=== PATIENT | male | born 1995 | race Caucasian/White ===

== ENCOUNTER 2017-08-23 14:30 | Emergency (ER) | payer OTHER ==
[2017-08-23] MEDS ORDERED: Lidocaine 1% 20 ML MDV INJECT ONE (15:23)
[2017-08-23] MEDS ORDERED: Bacitracin Oint 1 GM U/D Packet TOP ONE (15:23)
[2017-08-23] MEDS ORDERED: Diphtheria,Pertussis(Acell),Tetanus Vaccine 0.5 ML Syringe IM ONE (15:23)
--- NOTE | 2017-08-23 15:54 | EDM.PDOC ---
ED HPI GENERAL MEDICAL PROBLEM - General Chief Complaint: Laceration Stated Complaint: CUT TO RIGHT INDEX FINGER Time Seen by Provider: 08/23/17 15:13 Source of Information: Reports: Patient History Limitations: Reports: No Limitations - History of Present Illness INITIAL COMMENTS - FREE TEXT/NARRATIVE: HISTORY AND PHYSICAL: History of present illness: Patient is a 21-year-old male who presents to the emergency room with complaints of a laceration to his right index finger and a partial avulsion to his right thumb to cutting it with a knife approximately 1 hour prior to arrival. There is a small skin avulsion noted to the distal tip of the lateral right thumb, no bleeding noted. The right index finger has a laceration across the PIP joint, measuring approximately 2.5 cm. This has mild bleeding that is controlled with pressure. He is unsure of his last tetanus shot, believes it was in 2009. Denies any numbness or tingling to the extremity. Review of systems: As per history of present illness and below otherwise all systems reviewed and negative. Past medical history: As per history of present illness and as reviewed below otherwise noncontributory. Surgical history: As per history of present illness and as reviewed below otherwise noncontributory. Social history: No reported history of drug or alcohol abuse. Family history: As per history of present illness and as reviewed below otherwise noncontributory. Physical exam: Gen.: Well-developed and well-nourished 21-year-old male. Appears nontoxic. Alert and oriented. HEENT: Atraumatic, normocephalic, pupils reactive, negative for conjunctival pallor or scleral icterus, mucous membranes moist, throat clear, neck supple, nontender, trachea midline. Lungs: Clear to auscultation, breath sounds equal bilaterally, chest nontender. Heart: S1S2, regular, negative for clicks, rubs, or JVD. Abdomen: Soft, nondistended, nontender. Negative for masses or hepatosplenomegaly. Negative for costovertebral tenderness. Pelvis: Stable nontender. Genitourinary: Deferred. Rectal: Deferred. Extremities: Moves all extremities per self, good plantar flexion and extension of the first and second digit of the right hand. Capillary refill less than 3 seconds. Radial pulse, Neurovascular unremarkable. Skin:There is a small skin avulsion noted to the distal tip of the lateral right thumb, no bleeding noted. The right index finger has a laceration across the PIP joint, measuring approximately 2.5 cm. appears to have no tendon involvement. No foreign bodies noted in the laceration. This has mild bleeding that is controlled with pressure. Neuro: Awake, alert, oriented. Cranial nerves II through XII unremarkable. Cerebellum unremarkable. Motor and sensory unremarkable throughout. Exam nonfocal. Diagnostics: [] Therapeutics: Soaked in chlorhexidine and normal saline prior to provider evaluation 1% lidocaine-3 mL's was used for anesthetizing the laceration. Was washed and cleansed with chlorhexidine 4-0 nylon used, #6 interrupted sutures and tolerated well. Bacitracin nonstick dressing Patient tolerated sutures well. We discussed the signs and symptoms of infection. We'll place the patient on Keflex as he has 2 lacerations one being avulsed. Patient voices understanding and is agreeable to plan of care. Blood stitches removed in 7-10 days. Impression: Laceration Skin avulsion Plan: 1. Please keep the wound clean and dry. For your thumb please keep Neosporin or bacitracin on for 1-2 days, after that he may just apply a Band-Aid. Monitor for signs of infection as we discussed. Take your antibiotics as prescribed. 2. May use Tylenol and/or ibuprofen for pain management. 3. Stitches out in 7-10 days. 4. Follow-up with your primary care provider in the next 1-2 days. Return to the ED as needed and as discussed. Definitive disposition and diagnosis as appropriate pending reevaluation and review of above. Right index finger Pain Score (Numeric/FACES): 2 - Related Data Allergies Allergy/AdvReac Type Severity Reaction Status Date / Time No Known Allergies Allergy Verified 08/23/17 14:48 Home Meds: Home Meds Venlafaxine [Effexor] 25 mg PO DAILY 08/23/17 [History] Past Medical History Psychiatric History: Reports: Depression - Infectious Disease History Infectious Disease History: Reports: Chicken Pox Social & Family History - Family History Family Medical History: Noncontributory - Tobacco Use Smoking Status *Q: Never Smoker Second Hand Smoke Exposure: No - Caffeine Use Caffeine Use: Reports: Coffee, Energy Drinks, Soda, Tea - Recreational Drug Use Recreational Drug Use: No ED ROS GENERAL - Review of Systems Review Of Systems: ROS reveals no pertinent complaints other than HPI. ED EXAM, SKIN/RASH Exam: See Below (See dictation) ED SKIN PROCEDURES - Laceration/Wound Repair Right Middle Medial Finger Lac/Wound length In cm: 2.5 Appearance: Linear Distal NVT: Neuro & Vascular Intact, No Tendon Injury Anesthetic Type: Local Local Anesthesia - Lidocaine (Xylocaine): 1% Plain Local Anesthetic Volume: 3cc Skin Prep: Chlorhexidine (Hibiciens), Saline, Sterile Drape Exploration/Debridement/Repair: Wound Explored, In a Bloodless Field, Explored to Base, No Foreign Material Found Closed with: Sutures Suture Size: 4-0 # of Sutures: 6 Suture Type: Nylon Course - Vital Signs Last Recorded V/S: Last Vital Signs Temp 36.6 C 08/23/17 14:51 Pulse 65 08/23/17 14:51 Resp 16 08/23/17 14:51 BP 103/59 L 08/23/17 14:51 Pulse Ox 100 08/23/17 14:51 - Orders/Labs/Meds Orders: Active Orders 24 hr Category Date Time Status Communication Order [RC] STAT Care 08/23/17 15:57 Ordered Vaccines to be Administered [RC] PER UNIT ROUTINE Care 08/23/17 15:23 Active Meds: Medications Discontinued Medications Generic Name Dose Route Start Last Admin Trade Name Fred PRN Reason Stop Dose Admin Bacitracin 1 dose 08/23/17 15:23 08/23/17 15:36 Bacitracin Oint 1 Gm TOP 08/23/17 15:24 1 dose ONETIME ONE Administration Diphtheria/Tetanus/Acell Pertussis 0.5 ml 08/23/17 15:23 08/23/17 15:37 Adacel IM 08/23/17 15:24 0.5 ml .ONCE ONE Administration Lidocaine HCl 20 ml 08/23/17 15:23 08/23/17 15:46 Xylocaine 1% INJECT 08/23/17 15:24 20 ml ONETIME ONE Administration Departure - Departure Time of Disposition: 15:59 Disposition: Home, Self-Care 01 Clinical Impression: Laceration - Discharge Information Instructions: Laceration Care, Adult, [id number] Referrals: Urmila Villagran DO [Primary Care Provider] - Forms: ED Department Discharge Additional Instructions: My general discharge The following information is given to patients seen in the emergency department who are being discharged to home. This information is to outline your options for follow-up care. We provide all patients seen in our emergency department with a follow-up referral. The need for follow-up, as well as the timing and circumstances, are variable depending upon the specifics of your emergency department visit. If you don't have a primary care physician on staff, we will provide you with a referral. We always advise you to contact your personal physician following an emergency department visit to inform them of the circumstance of the visit and for follow-up with them and/or the need for any referrals to a consulting specialist. The emergency department will also refer you to a specialist when appropriate. This referral assures that you have the opportunity for follow-up care with a specialist. All of these measure are taken in an effort to provide you with optimal care, which includes your follow-up. Under all circumstances we always encourage you to contact your private physician who remains a resource for coordinating your care. When calling for follow-up care, please make the office aware that this follow-up is from your recent emergency room visit. If for any reason you are refused follow-up, please contact the [facility] Emergency Department at and asked to speak to the emergency department charge nurse. [facility] [address] [place] [id number] 1. Please keep the wound clean and dry. For your thumb please keep Neosporin or bacitracin on for 1-2 days, after that he may just apply a Band-Aid. Monitor for signs of infection as we discussed. Take your antibiotics as prescribed. 2. May use Tylenol and/or ibuprofen for pain management. 3. Stitches out in 7-10 days. 4. Follow-up with your primary care provider in the next 1-2 days. Return to the ED as needed and as discussed. - My Orders Last 24 Hours: My Active Orders 08/23/17 15:23 Vaccines to be Administered [RC] PER UNIT ROUTINE 08/23/17 15:57 Communication Order [RC] STAT - Assessment/Plan Last 24 Hours: My Active Orders 08/23/17 15:23 Vaccines to be Administered [RC] PER UNIT ROUTINE 08/23/17 15:57 Communication Order [RC] STAT
== END 2017-08-23 16:21 | disposition home or self-care (01) ==
LOC: MW.ED 14:30
DX: S61.210A Laceration without foreign body of right index finger without damage to nail, initial encounter (principal); Z23 Encounter for immunization; Z79.899 Other long term (current) drug therapy; W26.0XXA Contact with knife, initial encounter
CPT/HCPCS: 12001; 90471; 90715; 99282-25; 99284

== ENCOUNTER 2019-12-11 12:14 | Emergency (ER) | payer OTHER ==
--- NOTE | 2019-12-11 12:54 | EDM.PDOC ---
ED HPI GENERAL MEDICAL PROBLEM - General Chief Complaint: Lower Extremity Injury/Pain Stated Complaint: HURT LEFT ANKLE Time Seen by Provider: 12/11/19 12:54 Source of Information: Reports: Patient History Limitations: Reports: No Limitations - History of Present Illness INITIAL COMMENTS - FREE TEXT/NARRATIVE: HISTORY AND PHYSICAL: History of present illness: Patient is a 24-year-old male presents to the ED with complaint of left ankle injury. Patient states he was walking down some stairs this morning when he twisted his ankle. He states he has been able to walk on it but it is causing him a lot of discomfort so he came to the ED. He denies proximal knee pain or other injury. Review of systems: As per history of present illness and below otherwise all systems reviewed and negative. Past medical history: As per history of present illness and as reviewed below otherwise noncontributory. Surgical history: As per history of present illness and as reviewed below otherwise noncontributory. Social history: No reported history of drug or alcohol abuse. Family history: As per history of present illness and as reviewed below otherwise noncontributory. Physical exam: General: Patient sitting comfortably in no acute distress and nontoxic appearing HEENT: Atraumatic, normocephalic, pupils reactive, negative for conjunctival pallor or scleral icterus, mucous membranes moist, throat clear, neck supple, nontender, trachea midline. No meningeal signs. Lungs: Clear to auscultation, breath sounds equal bilaterally, chest nontender. Heart: S1S2, regular, negative for clicks, rubs, or overt murmur. Abdomen: Soft, nondistended, nontender. Negative for masses or hepatosplenomegaly. Negative for costovertebral tenderness. No rigidity, rebound , guarding. Pelvis: Stable nontender. Genitourinary: Deferred. Rectal: Deferred. Extremities: No obvious swelling or deformity, skin is intact. Pain to palpation of ankle ankle and lateral malleolus. Negative distal and proximal tib -fib squeeze. negative for cords or calf pain. Neurovascular unremarkable. Neuro: Awake, alert, oriented. Cranial nerves II through XII unremarkable. Cerebellum unremarkable. Motor and sensory unremarkable throughout. Exam nonfocal. Notes: Diagnostics: x-ray left ankle Therapeutics: Post mold splint placed by nursing staff Crutches Prescriptions: none Impression: Left ankle avulsion fracture Plan: 1. Ice, elevate, and motrin or tylenol as needed 2. Follow up with orthopedics, please call the number provided to schedule an appointment 3. Return to ED as needed as discussed Definitive disposition and diagnosis as appropriate pending reevaluation and review of above. left ankle Pain Score (Numeric/FACES): 6 - Related Data Allergies Allergy/AdvReac Type Severity Reaction Status Date / Time No Known Allergies Allergy Verified 08/10/18 11:14 Home Meds: Home Meds Venlafaxine [Effexor] 25 mg PO DAILY 08/23/17 [History] Past Medical History HEENT History: Reports: Allergic Rhinitis Cardiovascular History: Reports: None Respiratory History: Reports: Other (See Below) Other Respiratory History: recent Bronchitis Gastrointestinal History: Reports: Chronic Constipation Genitourinary History: Reports: None Musculoskeletal History: Reports: Back Pain, Chronic Neurological History: Reports: None Psychiatric History: Reports: Anxiety, Depression Endocrine/Metabolic History: Reports: None Hematologic History: Reports: None Immunologic History: Reports: None Oncologic (Cancer) History: Reports: None Dermatologic History: Reports: None - Infectious Disease History Infectious Disease History: Reports: Chicken Pox - Past Surgical History Head Surgeries/Procedures: Reports: None Social & Family History - Family History Family Medical History: Noncontributory - Tobacco Use Smoking Status *Q: Never Smoker - Caffeine Use Caffeine Use: Reports: None - Recreational Drug Use Recreational Drug Use: No Review of Systems - Review of Systems Review Of Systems: Comprehensive ROS is negative, except as noted in HPI. ED EXAM, GENERAL - Physical Exam Exam: See Below (see dictation) Course - Vital Signs Last Recorded V/S: Last Vital Signs Temp 97 F 12/11/19 12:44 Pulse 84 12/11/19 12:44 Resp 18 12/11/19 12:44 BP 117/69 12/11/19 12:44 Pulse Ox 98 12/11/19 12:44 Departure - Departure Time of Disposition: 13:55 Disposition: Home, Self-Care 01 Condition: Good Clinical Impression: Avulsion fracture of left ankle - Discharge Information Referrals: PCP,None [Primary Care Provider] - Forms: ED Department Discharge Additional Instructions: The following information is given to patients seen in the emergency department who are being discharged to home. This information is to outline your options for follow-up care. We provide all patients seen in our emergency department with a follow-up referral. The need for follow-up, as well as the timing and circumstances, are variable depending upon the specifics of your emergency department visit. If you don't have a primary care physician on staff, we will provide you with a referral. We always advise you to contact your personal physician following an emergency department visit to inform them of the circumstance of the visit and for follow-up with them and/or the need for any referrals to a consulting specialist. The emergency department will also refer you to a specialist when appropriate. This referral assures that you have the opportunity for follow-up care with a specialist. All of these measure are taken in an effort to provide you with optimal care, which includes your follow-up. Under all circumstances we always encourage you to contact your private physician who remains a resource for coordinating your care. When calling for follow-up care, please make the office aware that this follow-up is from your recent emergency room visit. If for any reason you are refused follow-up, please contact the [facility] Emergency Department at and asked to speak to the emergency department charge nurse. [facility] Professional Building [address] [place] [address], [address] [place] [address] 1. Ice, elevate, and motrin or tylenol as needed 2. Follow up with orthopedics, please call the number provided to schedule an appointment 3. Return to ED as needed as discussed Sepsis Event Note - Evaluation Sepsis Screening Result: No Definite Risk - Focused Exam Vital Signs: Vital Signs Temp Pulse Resp BP Pulse Ox 12/11/19 12:44 97 F 84 18 117/69 98 Date Exam was Performed: 12/11/19 Time Exam was Performed: 14:11
--- NOTE | 2019-12-11 13:41 | CR ---
Left ankle: 3 views of the left ankle were obtained. Comparison: No prior left ankle exam. Minimal cortical irregularity is noted off the anterior talar dome which is noted on the lateral view which is felt compatible with minimal cortical avulsion injury. Ankle mortise is symmetric. No additional fracture or other bony abnormality is identified. Impression: 1. Minimal cortical avulsion fracture off the anterior talar dome. 2. Left ankle study is otherwise unremarkable. Diagnostic code #3 Study was dictated in [place] Standard Time
== END 2019-12-11 14:19 | disposition home or self-care (01) ==
LOC: MW.ED 12:14
DX: S92.152A Displaced avulsion fracture (chip fracture) of left talus, initial encounter for closed fracture (principal); F41.9 Anxiety disorder, unspecified; F32.9 Major depressive disorder, single episode, unspecified; Z79.899 Other long term (current) drug therapy; X50.1XXA Overexertion from prolonged static or awkward postures, initial encounter
CPT/HCPCS: 29515; 73610-26-LT; 73610-LT; 99283; 99283-25

== ENCOUNTER 2021-01-04 17:07 | Emergency (ER) | payer OTHER ==
[2021-01-04] MEDS ORDERED: LORazepam 1 MG Tab PO ONE (17:18)
--- NOTE | 2021-01-04 17:19 | PCM.SN.2 ---
- Free Text/Narrative Note: The done at 1713 hrs. Sinus rhythm heart rate 88. QRS axis 48. QRS ST and T normal. No prior for comparison. Impression normal
--- NOTE | 2021-01-04 17:22 | EDM.PDOC ---
ED HPI GENERAL MEDICAL PROBLEM - General Chief Complaint: Chest Pain Stated Complaint: SLIGHT CHEST PAIN Time Seen by Provider: 01/04/21 17:11 Source of Information: Reports: Patient History Limitations: Reports: No Limitations - History of Present Illness INITIAL COMMENTS - FREE TEXT/NARRATIVE: History of present illness: Patient is a 25-year-old male who presents to the emergency room with complaints of generalized anterior chest pain that started at 1 PM when he had a panic attack. Patient states he has had anxiety and depression in the past but typically manages this with activity and keeping himself busy. Today he had a "panic attack" that lasted several minutes. He developed chest pain during this panic attack which mostly resolved but still feels slight discomfort. He states he also feels some residual anxiety. Patient denies any fever, chills, headache, no change in vision, syncope or near syncope. Denies any back pain, shortness of breath, hemoptysis or cough. Denies any abdominal pain, nausea, vomiting, diarrhea, constipation or dysuria. Patient has been eating and drinking appropriately. Review of systems: As per history of present illness and below otherwise all systems reviewed and negative. Past medical history: As per history of present illness and as reviewed below otherwise noncontributory. Surgical history: As per history of present illness and as reviewed below otherwise noncontributory. Social history: No reported history of drug or alcohol abuse. Family history: As per history of present illness and as reviewed below otherwise noncontributory. Physical exam: General: Well-developed and well nourished 25 year old female. Alert and appropriate for age. Nontoxic-appearing and in no acute distress. HEENT: Atraumatic, normocephalic, pupils reactive, negative for conjunctival pallor or scleral icterus, mucous membranes moist, throat clear, neck supple, nontender, trachea midline. TMs normal bilaterally, no cervical adenopathy or nuchal rigidity. Lungs: Clear to auscultation, breath sounds equal bilaterally, chest nontender. No work of breathing, no accessory muscles use. Heart: S1S2, regular rate and rhythm, no overt murmurs Abdomen: Soft, nondistended, nontender to palpation. Negative for masses or hepatosplenomegaly. Normal abdominal bowel sounds. No flank tenderness. Pelvis: Stable nontender. Hematologic: No petechiae or purpra. Mucosa appropriate color and normal nail bed color and refill. Skin: Normal turgor, no overt rash or lesions Extremities: Atraumatic, full range of motion without defects or deficits. Neurovascular unremarkable. Neuro: Awake, alert, and age appropriate. Cranial nerves II through XII unremarkable. Cerebellum unremarkable. Motor and sensory unremarkable throughout. Exam nonfocal. Notes: This patient was seen and evaluated during the 2019 SARS-CoV-2 novel coronavirus pandemic period. Community viral transmission is ongoing at time of this encounter and the emergency department is operating under pandemic response procedures Patients symptoms are likely due to his panic attack and continued anxiety. He has a ride, will give him PO ativan and o lab work to rule out other causes. EKG, lab work and chest x-ray are unremarkable. He feels improved after the Ativan. VSS. I have spoken with the patient/caregiver and discussed today's findings, in addition to providing specific details for plan of care. Reassessment at the time of disposition demonstrates that the patient is in no acute distress. The patient is stable for discharge, counseling was provided and we discussed in great detail signs and symptoms that would prompt them to return to the Emergency Department. Medication, follow up and supportive care measures were reviewed and discussed. Voices understanding and is agreeable to plan of care. Denies any further questions or concerns at this time. Diagnostics: CBC, CMP, troponin, EKG Therapeutics: Ativan Prescription: None Impression: Chest pain, nonspecific Plan: 1. Your EKG, chest x-ray and lab work was within normal limits. Your pain is likely due to anxiety. If you start to have more and more panic attacks, you should follow up with your primary care provider as they can prescribe medications for relief. 2. You can alternate Tylenol and/or ibuprofen as needed for pain or fever management. 3. We always encourage you to follow up with your primary care provider in the next few days for re-evaluation and further care/management. 4. If your symptoms should worsen, new symptoms develop or any of the signs and symptoms we discussed should arise please return to the emergency room or call 911 (if needed). Chest Pain Score (Numeric/FACES): 4 - Related Data Allergies Allergy/AdvReac Type Severity Reaction Status Date / Time No Known Allergies Allergy Verified 01/04/21 17:19 Home Meds: Home Meds . [No Known Home Meds] 01/04/21 [History] Past Medical History HEENT History: Reports: Allergic Rhinitis Cardiovascular History: Reports: None Respiratory History: Reports: Other (See Below) Other Respiratory History: recent Bronchitis Gastrointestinal History: Reports: Chronic Constipation Genitourinary History: Reports: None Musculoskeletal History: Reports: Back Pain, Chronic Neurological History: Reports: None Psychiatric History: Reports: Anxiety, Depression Endocrine/Metabolic History: Reports: None Hematologic History: Reports: None Immunologic History: Reports: None Oncologic (Cancer) History: Reports: None Dermatologic History: Reports: None - Infectious Disease History Infectious Disease History: Reports: Chicken Pox - Past Surgical History Head Surgeries/Procedures: Reports: None Social & Family History - Family History Family Medical History: No Pertinent Family History - Caffeine Use Caffeine Use: Reports: None ED ROS GENERAL - Review of Systems Review Of Systems: Comprehensive ROS is negative, except as noted in HPI. ED EXAM, GENERAL - Physical Exam Exam: See Below (See dictation) Course - Vital Signs Last Recorded V/S: Last Vital Signs Temp 97.9 F 01/04/21 17:19 Pulse 90 01/04/21 17:19 Resp 18 01/04/21 17:19 BP Pulse Ox 99 01/04/21 17:19 - Orders/Labs/Meds Orders: Active Orders 24 hr Category Date Time Status EKG Documentation Completion [RC] STAT Care 01/04/21 17:15 Active Chest 1V Frontal [CR] Stat Exams 01/04/21 17:15 Taken Labs: Laboratory Tests 01/04/21 01/04/21 Range/Units 17:25 17:25 WBC 8.71 (4.0-11.0) K/uL RBC 5.44 (4.50-5.90) M/uL Hgb 17.1 H (13.0-17.0) g/dL Hct 48.9 (38.0-50.0) % MCV 89.9 (80.0-98.0) fL MCH 31.4 (27.0-32.0) pg MCHC 35.0 (31.0-37.0) g/dL RDW Std Deviation 41.2 (28.0-62.0) fl RDW Coeff of Brianne 13 (11.0-15.0) % Plt Count 212 (150-400) K/uL MPV 12.20 H (7.40-12.00) fL Neut % (Auto) 71.3 (48.0-80.0) % Lymph % (Auto) 21.6 (16.0-40.0) % [place] % (Auto) 5.6 (0.0-15.0) % Eos % (Auto) 1.3 (0.0-7.0) % Baso % (Auto) 0.2 (0.0-1.5) % Neut # (Auto) 6.2 H (1.4-5.7) K/uL Lymph # (Auto) 1.9 (0.6-2.4) K/uL [place] # (Auto) 0.5 (0.0-0.8) K/uL Eos # (Auto) 0.1 (0.0-0.7) K/uL Baso # (Auto) 0.0 (0.0-0.1) K/uL Nucleated RBC % 0.0 /100WBC Nucleated RBCs # 0 K/uL Sodium 139 (136-148) mmol/L Potassium 3.6 (3.5-5.1) mmol/L Chloride 103 (98-107) mmol/L Carbon Dioxide 25.2 (21.0-32.0) mmol/L BUN 14 (7.0-18.0) mg/dL Creatinine 1.1 (0.8-1.3) mg/dL Est Cr Clr Drug Dosing 117.03 mL/min Estimated GFR (MDRD) > 60.0 ml/min Glucose 89 (74-106) mg/dL Calcium 9.4 (8.5-10.1) mg/dL Total Bilirubin 0.6 (0.2-1.0) mg/dL AST 22 (15-37) IU/L ALT 43 (14-63) IU/L Alkaline Phosphatase 68 (46-116) U/L Troponin I < 0.050 (0.000-0.056) ng/mL Total Protein 8.1 (6.4-8.2) g/dL Albumin 4.5 (3.4-5.0) g/dL Globulin 3.6 (2.6-4.0) g/dL Albumin/Globulin Ratio 1.2 (0.9-1.6) Meds: Medications Discontinued Medications Generic Name Dose Route Start Last Admin Trade Name Freq PRN Reason Stop Dose Admin Lorazepam 1 mg 01/04/21 17:18 01/04/21 17:35 Lorazepam 1 Mg Tab PO 01/04/21 17:19 1 mg ONETIME ONE Administration Departure - Departure Time of Disposition: 18:20 Disposition: Home, Self-Care 01 Clinical Impression: Nonspecific chest pain Referrals: PCP,None [Primary Care Provider] - Forms: ED Department Discharge Additional Instructions: The following information is given to patients seen in the emergency department who are being discharged to home. This information is to outline your options for follow-up care. We provide all patients seen in our emergency department with a follow-up referral. The need for follow-up, as well as the timing and circumstances, are variable depending upon the specifics of your emergency department visit. If you don't have a primary care physician on staff, we will provide you with a referral. We always advise you to contact your personal physician following an emergency department visit to inform them of the circumstance of the visit and for follow-up with them and/or the need for any referrals to a consulting specialist. The emergency department will also refer you to a specialist when appropriate. This referral assures that you have the opportunity for follow-up care with a specialist. All of these measure are taken in an effort to provide you with optimal care, which includes your follow-up. Under all circumstances we always encourage you to contact your private physician who remains a resource for coordinating your care. When calling for follow-up care, please make the office aware that this follow-up is from your recent emergency room visit. If for any reason you are refused follow-up, please contact the [facility] at and asked to speak to the emergency department charge nurse. [facility] [address] [place] [id number] [address] [id number] Thank you for choosing the [facility] emergency department in [place] for your medical needs today. It was a pleasure caring for you. Today you were seen in the emergency department for chest pain and anxiety. 1. Your EKG, chest x-ray and lab work was within normal limits. Your pain is likely due to anxiety. If you start to have more and more panic attacks, you should follow up with your primary care provider as they can prescribe medications for relief. 2. You can alternate Tylenol and/or ibuprofen as needed for pain or fever management. 3. We always encourage you to follow up with your primary care provider in the next few days for re-evaluation and further care/management. 4. If your symptoms should worsen, new symptoms develop or any of the signs and symptoms we discussed should arise please return to the emergency room or call 911 (if needed). Sepsis Event Note (ED) - Focused Exam Vital Signs: Vital Signs Temp Pulse Resp Pulse Ox 01/04/21 17:19 97.9 F 90 18 99 - My Orders Last 24 Hours: My Active Orders 01/04/21 17:15 EKG Documentation Completion [RC] STAT Chest 1V Frontal [CR] Stat - Assessment/Plan Last 24 Hours: My Active Orders 01/04/21 17:15 EKG Documentation Completion [RC] STAT Chest 1V Frontal [CR] Stat
[2021-01-04 18:11] LABS: BLOOD UREA NITROGEN,BUN 14 mg/dL (7.0-18.0); CARBON DIOXIDE,CO2 25.2 mmol/L (21.0-32.0); CHLORIDE,CL 103 mmol/L (98-107); GLUCOSE RANDOM 89 mg/dL (74-106); POTASSIUM,K 3.6 mmol/L (3.5-5.1); SODIUM,NA 139 mmol/L (136-148)
--- NOTE | 2021-01-04 18:26 | CR ---
INDICATION: Chest pain TECHNIQUE: Chest 1 view COMPARISON: None FINDINGS: Cardiovascular and mediastinum: Heart size and vasculature are normal in caliber and appearance. Lungs and pleural spaces: Lungs are clear. No sign of infiltrate or mass. No sign of pleural effusion. No pneumothorax. Bones and soft tissues: No significant findings. IMPRESSION: No acute or significant findings. Dictated by Mateo Jean MD @ Jan 04 2021 6:24PM Signed by Dr. Mateo Jean @ Jan 04 2021 6:25PM
== END 2021-01-04 19:17 | disposition home or self-care (01) ==
LOC: MW.ED 17:07
DX: R07.9 Chest pain, unspecified (principal)
CPT/HCPCS: 36415; 71045; 80053; 84484; 85025; 93005; 99285; A9270; 93010; 99283